=== PATIENT | male | born 1945 | race Caucasian/White ===

== ENCOUNTER → 2022-02-26 | Outpatient (REF) | payer MEDICARE ==
[2022-02-26 11:57] LABS: HEMOGLOBIN A1c 6.3 %
[2022-02-26 12:10] LABS: CHOLESTEROL RISK RATIO 3.72 (<5)
== END ==
LOC: M LABDRAWC 11:22
PROVIDERS: ATTEND Emergency Medicine
DX: E11.9 Type 2 diabetes mellitus without complications (principal); I48.91 Unspecified atrial fibrillation

== ENCOUNTER → 2023-05-20 | Outpatient (CLI) | payer MEDICARE ==
[2023-05-20 14:02] LABS: ALBUMIN 3.2 G/DL (3.2-5.2); ALKALINE PHOSPHATASE 99 U/L (46-116); ALT/SGPT 11 U/L (7.0-40); AST/SGOT 14 U/L (<34); BLOOD UREA NITROGEN 18 MG/DL (9-23); CALCIUM LEVEL 9.5 MG/DL (8.3-10.6); CARBON DIOXIDE LEVEL 31 MMOL/L (20-31); CHLORIDE LEVEL 103 MMOL/L (98-107); CHOLESTEROL LEVEL 272 MG/DL (<200); CHOLESTEROL RISK RATIO 3.78 (<5); CREATININE FOR GFR 0.97 MG/DL (0.70-1.30); GLOMERULAR FILTRATION RATE > 60.0 (>42); GLUCOSE, FASTING 168 MG/DL (74-106); HDL CHOLESTEROL 71.8 MG/DL (>40); LDL CHOLESTEROL 168.8 MG/DL (<100); NON-HDL-C 200.2 MG/DL; POTASSIUM SERUM 4.1 MMOL/L (3.5-5.1); SODIUM LEVEL 143 MMOL/L (136-145); TOTAL PROTEIN 6.7 G/DL (5.7-8.2); TRIGLYCERIDES LEVEL 157 MG/DL (<150)
[2023-05-20 14:03] LABS: HEMATOCRIT 46.8 % (42.0-52.0); HEMOGLOBIN 14.8 g/dl (13.5-17.5); MEAN CORPUSCULAR HEMOGLOBIN 29.7 pg (27.0-33.0); MEAN CORPUSCULAR HGB CONC 31.6 g/dl (32.0-36.5); MEAN CORPUSCULAR VOLUME 93.8 fl (80.0-96.0); PLATELET COUNT, AUTOMATED 233 10^3/uL (150-450); RED BLOOD COUNT 4.99 10^6/uL (4.30-6.10); WHITE BLOOD COUNT 8.5 10^3/uL (4.0-10.0)
[2023-05-20 14:05] LABS: FREE T4 1.01 NG/DL (0.89-1.76)
[2023-05-20 14:06] LABS: THYROID STIMULATING HORMONE 0.748 uIU/ML (0.55-4.78)
[2023-05-20 14:07] LABS: TOTAL 25(OH) VITAMIN D 19.5 NG/ML (20.0-100.0)
[2023-05-20 14:08] LABS: VITAMIN B12 LEVEL 431 PG/ML (211-911)
[2023-05-20 14:10] LABS: HEMOGLOBIN A1c 8.4 % (4.0-6.0)
[2023-05-20 14:19] LABS: CREATININE, URINE 56.5 MG/DL
[2023-05-20 14:31] LABS: MALB URINE SIEMENS > 3800.0 MG/L; MAU/CREAT RATIO 6725.6 MCG/MG (0.0-30.0)
== END ==
LOC: M PLALAB 09:23
PROVIDERS: ATTEND Internal Medicine Hematology
DX: E11.9 Type 2 diabetes mellitus without complications (principal); Z12.5 Encounter for screening for malignant neoplasm of prostate; Z79.899 Other long term (current) drug therapy
CPT/HCPCS: 36415; 80053; 80061; 82043; 82306; 82607; 83036; 83525; 84439; 84443; 85027; 86140; G0103

== ENCOUNTER 2025-09-04 20:10 | Emergency (ER) | payer MEDICARE ==
[~2025-09-04] VITALS: Ht 182.9 cm; Wt 134.1 kg
[2025-09-04 20:39] VITALS: TEMP 96.1
[2025-09-04 20:44] LABS: BASO # 0.1 10^3/uL (0.0-0.2); BASO % 0.8 % (0.0-1.0); EOS # 0.1 10^3/uL (0.0-0.5); EOS % 1.3 % (0.0-3.0); LYMPH # 0.7 10^3/uL (1.5-5.0); LYMPH % 10.7 % (24.0-44.0); MONO # 0.6 10^3/uL (0.0-0.8); MONO % 9.5 % (2.0-8.0); NEUTROPHILS # 4.9 10^3/uL (1.5-8.5); NEUTROPHILS % 77.4 % (36.0-66.0); PLATELET COUNT, AUTOMATED 174 10^3/uL (150-450)
[2025-09-04 21:09] LABS: ALT/SGPT 22.0 U/L (7.0-40); AST/SGOT 44.0 U/L (<34); CALCIUM LEVEL 8.6 MG/DL (8.3-10.6); CARBON DIOXIDE LEVEL 27.0 MMOL/L (20-31); CHLORIDE LEVEL 104.0 MMOL/L (98-107); CREATININE FOR GFR 1.54 MG/DL (0.70-1.30); GLOMERULAR FILTRATION RATE 45.6 (>42); POTASSIUM SERUM 4.0 MMOL/L (3.5-5.1); SODIUM LEVEL 143.0 MMOL/L (136-145)
[2025-09-04 22:41] VITALS: BP 161/89
[2025-09-04 22:52] VITALS: O2SAT 94
[2025-09-04] MEDS ORDERED: MECL-209 PO (23:49)
[2025-09-04 23:50] VITALS: O2SAT 96
== END 2025-09-05 | disposition home or self-care (01) ==
LOC: M ED 20:10
DX: H81.4 Vertigo of central origin (principal); I45.10 Unspecified right bundle-branch block; I48.91 Unspecified atrial fibrillation; I45.81 Long QT syndrome; E11.9 Type 2 diabetes mellitus without complications; I10 Essential (primary) hypertension; E78.5 Hyperlipidemia, unspecified; Z79.01 Long term (current) use of anticoagulants; Z79.899 Other long term (current) drug therapy
CPT/HCPCS: 70450; 80047; 80048; 80076; 83690; 85025; 93005; 96374; 99285; J2765; J3360